=== PATIENT | female | born 1970 | race Caucasian/White ===

== ENCOUNTER 2021-02-27 23:02 | Emergency (ER) | payer SELFPAY ==
[~2021-02-27] VITALS: Ht 170.2 cm; Wt 68.0 kg
[2021-02-28] MEDS ORDERED: CEPH500C2 PO (02:40)
[2021-02-28] MEDS ORDERED: HYDR-3980 PO (02:40)
[2021-02-28 02:50] VITALS: BP 110/70
--- NOTE | 2021-02-28 02:51 | NUR ---
Patient discharged to home in stable condition. Written and verbal after care instructions given. Patient verbalizes understanding of instructions. Stressed follow up or return to ER for worsening s/s. Patient ambulates with steady gait, V/S stable, received paper Rx, and left with all personal belongings.
== END 2021-02-28 02:50 | disposition home or self-care (01) ==
LOC: ER 23:07
DX: K02.9 Dental caries, unspecified (principal); R01.1 Cardiac murmur, unspecified
CPT/HCPCS: A4663

== ENCOUNTER 2023-06-08 10:51 | Emergency (ER) | payer OTHER ==
[~2023-06-08] VITALS: Ht 170.2 cm; Wt 68.9 kg
[~2023-06-08 10:51] MED LIST: CEPH500C2 PO; HYDR-3980 PO
[2023-06-08] MEDS ORDERED: SULFAMETH/TRIMETH 800/160 MG TABLET PO ONE (11:30)
[2023-06-08] MEDS ORDERED: SULFAMETH/TRIMETH 800/160 MG TABLET ONE (11:35)
[2023-06-08] MEDS ORDERED: SULF1TAB48 PO (11:39)
[2023-06-08 13:34] VITALS: BP 122/70; TEMP 98; O2SAT 99
== END 2023-06-08 13:34 | disposition home or self-care (01) ==
LOC: ER 10:51
DX: N61.1 Abscess of the breast and nipple (principal); M65.312 Trigger thumb, left thumb; F17.210 Nicotine dependence, cigarettes, uncomplicated; Z79.899 Other long term (current) drug therapy
CPT/HCPCS: 73140; 76642; A4606; A4663